=== PATIENT | female | born 1960 | race Caucasian/White ===

== ENCOUNTER 2016-06-22 17:12 | Inpatient (IN) | payer MEDICAID ==
[~2016-06-22] VITALS: Ht 188 cm; Wt 103.0 kg
[2016-06-22 17:15] VITALS: BP 166/93; PULSE 82; RESP 20; TEMP 97.2; O2SAT 98
--- NOTE | 2016-06-22 17:15 | NUR ---
Pt placed to ER bed 03, triaged at bedside. Placed to gown and panel monitor. Pt report given to DIPAK Jack.
--- NOTE | 2016-06-22 17:18 | NUR ---
ER at bedside examining patient.
--- NOTE | 2016-06-22 17:20 | NUR ---
PT C/O CP X 2 DAYS. PT HAS ACUTE RESP DISTRESS NOTED.PT DENIES SIGNIFICANT MED HX.
[2016-06-22] MEDS ORDERED: ASPIRIN 81 MG TAB.CHEW PO ONE (17:30)
--- NOTE | 2016-06-22 17:30 | NUR ---
Portable CXR complete.
--- NOTE | 2016-06-22 17:40 | NUR ---
# 20 gauge angiocath placed to RAC. Use of asceptic technique. Opsite placed over site. Blood return noted. Blood for lab drawn from site. Flushed with 10 cc of normal saline. No evidence of infiltration noted. Patient tolerated well.
[2016-06-22 17:59] LABS: EOSINOPHILS # (AUTO) 0.1 K/uL (0.0-0.4); EOSINOPHILS % (AUTO) 2.4 % (0.0-4.0); HEMATOCRIT 41.3 % (36-48); HEMOGLOBIN 13.9 g/dL (12.0-16.0); LYMPHOCYTES # (AUTO) 1.7 K/uL (1.0-5.5); LYMPHOCYTES % (AUTO) 35.8 % (20.5-51.5); MEAN CORPUSCULAR HEMOGLOBIN 32 pg (27-31); MEAN CORPUSCULAR HGB CONC 34 % (32-36); MEAN CORPUSCULAR VOLUME 94 fL (79.0-98.0); MONOCYTES # (AUTO) 0.4 K/uL (0.0-1.0); MONOCYTES % (AUTO) 8.6 % (1.7-9.3); NEUTROPHILS # (AUTO) 2.4 K/uL (1.8-7.7); NEUTROPHILS % (AUTO) 52.2 % (40.0-70.0); PLATELET COUNT (AUTO) 325 K/uL (130-430); RED BLOOD CELL COUNT(AUTO) 4.41 MIL/uL (4.2-6.2); RED CELL DISTRIBUTION WIDTH 11.5 % (9.0-15.0); WHITE BLOOD COUNT (AUTO) 4.6 K/uL (4.8-10.8)
[2016-06-22 18:06] LABS: CALCIUM 8.7 mg/dL (8.4-11.0); CREATININE 0.99 mg/dL (0.55-1.30); POTASSIUM 3.8 mmol/L (3.5-5.1)
[2016-06-22 18:10] LABS: ALBUMIN 4.1 g/dL (3.4-4.8); TOTAL BILIRUBIN 0.4 mg/dL (0.0-1.0); TOTAL PROTEIN, SERUM 8.1 g/dL (6.4-8.3)
[2016-06-22 18:11] LABS: PROTHROMBIN TIME 10.5 SECS (9.5-12.5)
--- NOTE | 2016-06-22 18:30 | NUR ---
PT SUBSIDING CONTINUING TO MONITOR
--- NOTE | 2016-06-22 19:40 | NUR ---
Patient will be admitted under the care of Dr. Gray. Admitted to telemetry unit. Will go to room 119B. Summary report printed. Transported patient via gurney by 1 RN and MT without any incident. No acute distress or SOB upon transfer. Vitals signs stable. Report given to DIPAK Parrish at bedside.
--- NOTE | 2016-06-22 19:42 | NUR ---
ADMIT NOTE Received pt from ER to the floor with a diagnosis of chest pain. Admission process initiated. patient oriented to pain management, safety and call light-teach back done.
[2016-06-22 19:50] VITALS: BP 134/89; PULSE 75; RESP 18; TEMP 96.6; O2SAT 97
--- NOTE | 2016-06-22 20:00 | NUR ---
Initial Notes Received patient laying in bed, awake, alert, oriented. Vital signs stable. Patient denies any acute distress or pain at this time. Breathing is even and unlabored on room air. IV site patent/clean/dry. Educated patient on use of call light for assistance and fall precautions, patient verbalized understanding. Call light in hand, will continue to monitor.
--- NOTE | 2016-06-22 20:15 | NUR ---
CONSULTATION PAGED REASON FOR CONSULTATION:CHEST PAIN WAS CONSULT CALLED?Y PERSON WHO WAS NOTIFIED:[facility] CONSULTING PHYSICIAN:RALF BLACKMON ([employer] SALES COMMUNICATIONS MANAGER) EXCHANGE CONSULTANT SPECIALTY:CARDIO EXCHANGE CONSULTANT PHONE NUMBER:[phone]
[2016-06-22] MEDS ORDERED: NITROGLYCERIN 0.4 MG TAB.SUBL SL PRN (22:00)
--- NOTE | 2016-06-22 22:00 | NUR ---
Rounds Patient resting in bed, awake. Denies any acute distress or pain. Breathing even and unlabored. Needs addressed. Call light in hand, will continue to monitor. Dr. Gray on unit, saw patient.
[2016-06-22] MEDS ORDERED: ACETAMINOPHEN 325 MG TABLET PO PRN (22:15)
[2016-06-22] MEDS ORDERED: cloNIDine HCL 0.1 MG TABLET PO PRN (22:15)
[2016-06-22] MEDS ORDERED: TEMAZEPAM 15 MG CAPSULE PO PRN (22:15)
[2016-06-23] VITALS: BP 131/81; PULSE 77; RESP 18; TEMP 97.1; O2SAT 97
--- NOTE | 2016-06-23 | NUR ---
Rounds Patient resting in bed with eyes closed. No acute distress noted, breathing even and unlabored. Call light in hand, will continue to monitor.
--- NOTE | 2016-06-23 02:00 | NUR ---
Rounds Patient resting in bed with eyes closed. No acute distress noted, breathing is even and unlabored. Call light in hand, will continue to monitor.
--- NOTE | 2016-06-23 04:00 | NUR ---
Rounds Patient resting in bed, easily aroused. Patient denies any acute distress or pain at this time. Breathing is even and unlabored. Needs addressed. Call light in hand, will continue to monitor.
[2016-06-23 04:22] VITALS: BP 139/75; PULSE 72; RESP 18; TEMP 97.7; O2SAT 98
--- NOTE | 2016-06-23 06:30 | NUR ---
Closing Notes Patient resting in bed with eyes closed, easily aroused. Patient denies any acute distress or pain at this time. Breathing is even and unlabored. IV site patent/clean/dry, no S/S infection/infiltration noted. Needs addressed throughout shift. Call light in hand, fall precautions in place. Will continue to monitor for changes and safety, and endorse all patient care/needs to oncoming nurse.
[2016-06-23 06:59] LABS: BASOPHILS # (AUTO) 0.1 K/uL (0.0-0.2); BASOPHILS % (AUTO) 2.4 % (0.0-2.0); EOSINOPHILS # (AUTO) 0.2 K/uL (0.0-0.4); EOSINOPHILS % (AUTO) 4.3 % (0.0-4.0); LYMPHOCYTES # (AUTO) 1.8 K/uL (1.0-5.5); LYMPHOCYTES % (AUTO) 38.5 % (20.5-51.5); MEAN CORPUSCULAR HEMOGLOBIN 33 pg (27-31); MEAN CORPUSCULAR HGB CONC 34 % (32-36); MEAN CORPUSCULAR VOLUME 96 fL (79.0-98.0); MONOCYTES # (AUTO) 0.4 K/uL (0.0-1.0); MONOCYTES % (AUTO) 9.4 % (1.7-9.3); NEUTROPHILS # (AUTO) 2.1 K/uL (1.8-7.7); NEUTROPHILS % (AUTO) 45.4 % (40.0-70.0); PLATELET COUNT (AUTO) 248 K/uL (130-430); RED BLOOD CELL COUNT(AUTO) 3.98 MIL/uL (4.2-6.2); RED CELL DISTRIBUTION WIDTH 11.7 % (9.0-15.0); WHITE BLOOD COUNT (AUTO) 4.6 K/uL (4.8-10.8)
[2016-06-23 07:17] LABS: CALCIUM 8.6 mg/dL (8.4-11.0); CREATININE 0.94 mg/dL (0.55-1.30); POTASSIUM 4.2 mmol/L (3.5-5.1)
[2016-06-23 07:18] LABS: FREE T4 (FREE THYROXINE) 0.9 ng/dL (0.6-1.6); THYROID STIMULATING HORMONE 2.89 uIu/mL (0.34-4.82)
[2016-06-23 07:58] VITALS: BP 140/96; PULSE 70; RESP 18; TEMP 97.2; O2SAT 98
--- NOTE | 2016-06-23 08:00 | NUR ---
NOTE PT SITTING UP IN BED EATING HER BREAKFAST AT THIS TIME. DENIES ANY CHEST PAIN/DISCOMFORT AT THIS TIME. TELE UNIT ATTACHED AND INTACT AT THIS TIME. NO SOB/RESP DISTRESS NOTED. IV IN RIGHT AC INTACT AND PATENT AT THIS TIME. CALL LIGHT WITHIN REACH. NO NEEDS NOTED.
[2016-06-23] MEDS ORDERED: IBUPROFEN 400 MG TABLET PO PRN (08:30)
[2016-06-23] MEDS ORDERED: ASPIRIN 81 MG TABLET(ECOTRIN) PO SCH (09:00)
--- NOTE | 2016-06-23 10:00 | NUR ---
NOTE PT RESTING IN BED. DR ARIAS CAME TO SEE PT AND ASSESSMENT WAS COMPLETED AT THIS TIME. NO CHEST PAIN/DISCOMFORT NOTED. PT STABLE AT THIS TIME. CALL LIGHT WITHIN REACH.
[2016-06-23 12:28] VITALS: BP 100/54; PULSE 68; RESP 17; TEMP 97; O2SAT 98
--- NOTE | 2016-06-23 12:40 | NUR ---
NOTE PT SITTING UP IN BED TO EAT HER LUNCH. DR MYLES ON THE FLOOR, WILL BE DOING ASSESSMENT AND ANSWERING QUESTIONS/CONCERNS AT THIS TIME WELL. NO NEEDS NOTED AT THIS TIME. CALL LIGHT WITHIN REACH.
[2016-06-23] MEDS ORDERED: IOHEXOL 350 mgI/mL, 150 ML INFUS..BTL IV ONE (14:26)
--- NOTE | 2016-06-23 14:30 | NUR ---
NOTE PT AMBULATORY IN HALLWAY AND IN ROOM WITH STEADY GAIT. NO CHEST PAIN/DISCOMFORT NOTED AT THIS TIME. NO NEEDS NOTED AT THIS TIME.
[2016-06-23 16:28] VITALS: BP 117/74; PULSE 70; RESP 20; TEMP 97.1; O2SAT 97
--- NOTE | 2016-06-23 16:30 | NUR ---
NOTE PT RESTING IN BED. NO NEEDS WERE NOTED AT THIS TIME. CALL LIGHT WITHIN REACH.
[2016-06-23 17:23] VITALS: BP 129/83; PULSE 75; RESP 18; TEMP 97.5; O2SAT 98
--- NOTE | 2016-06-23 18:00 | NUR ---
NOTE PT SITTING UP IN BED EATING HER DINNER. PT REMOVED HER TELE UNIT AND IS DRESSED IN STREET [employer]. TELE UNIT RETURNED TO INTERNATIONAL TRADE MANAGER. PT WAS GIVEN VERBAL DISCHARGE INSTRUCTIONS BY DR MYLES. QUESTIONS/CONCERNS WERE ANSWERED AT THIS TIME. CALL LIGHT WITHIN REACH.
--- NOTE | 2016-06-23 18:48 | NUR ---
NOTE PT'S RIGHT AC IV WAS DC'D. SITE BENIGN. NO SWELLING/REDNESS/BLEEDING OR DRAINAGE NOTED AT THIS TIME. QUESTIONS/CONCERNS WERE ANSWERED. PT OFF THE FLOOR WITH WITH ALL HER BELONGINGS, DISCHARGE PAPERWORK AND PRESCRIPTION. NO SOB/RESP DISTRESS OR SEVERE CHEST PAIN/DISCOMFORT NOTED AT THIS TIME. NO NEEDS NOTED. PT STABLE.
--- NOTE | 2016-06-24 14:27 | NUR ---
Discharge Follow Up Phone Call: ADULT PAROLE OFFICER called and spoke with pt ([phone]). Pt states that she is doing ok, but still having some pain; pt's prescriptions have been filled; there are no questions regarding discharge or medication instructions; pt has a PCP follow up appointment scheduled for 07/01/16. Pt did not express any other needs or concerns and denied the need for additional follow up at this time. No further follow up phone calls required at this time.
== END 2016-06-23 18:43 | disposition home or self-care (01) | DRG 203 ==
LOC: SED 17:12 → STU 19:28
PROVIDERS: ADMIT Internal Medicine; ATTEND Internal Medicine
DX: R07.89 Other chest pain (principal); J44.9 Chronic obstructive pulmonary disease, unspecified; E78.00 Pure hypercholesterolemia, unspecified; E78.5 Hyperlipidemia, unspecified; R91.1 Solitary pulmonary nodule; F17.210 Nicotine dependence, cigarettes, uncomplicated; Z80.3 Family history of malignant neoplasm of breast; Z82.49 Family history of ischemic heart disease and other diseases of the circulatory system
CPT/HCPCS: 36415; 71010; 71275; 80048; 80053; 80061; 83880; 84439; 84443-TC; 84484; 85025; 85610-TC; 85730-TC; 93005; 93306; 99285; Q9967